=== PATIENT | male | born 1960 | race Caucasian/White ===

== ENCOUNTER 2021-03-18 16:05 | Emergency (ER) | payer OTHER ==
[~2021-03-18] VITALS: Ht 175.3 cm; Wt 100.0 kg
--- NOTE | 2021-03-18 16:41 | NUR ---
dragline operator: Pt to room via WC from lobby at this time.
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
--- NOTE | 2021-03-18 18:31 | NUR ---
BREAK RN- SPLINT PLACED BY NEEDLE PUNCH MACHINE OPERATOR
--- NOTE | 2021-03-18 18:45 | NUR ---
ED RN to ED RN handoff report received from SHAWNA Feliciano
[2021-03-18 18:56] VITALS: BP 158/72
--- NOTE | 2021-03-18 19:07 | NUR ---
REPORT GIVEN TO SHAWNA LY
[2021-03-18] MEDS ORDERED: NEOSPORIN OINT. PKT 1 PACKET ONE (19:16)
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
== END 2021-03-18 20:22 | disposition home or self-care (01) ==
LOC: ED 16:06
DX: S82.65XA Nondisplaced fracture of lateral malleolus of left fibula, initial encounter for closed fracture (principal); V29.9XXA Motorcycle rider (driver) (passenger) injured in unspecified traffic accident, initial encounter; Y93.89 Activity, other specified; Y92.828 Other wilderness area as the place of occurrence of the external cause; Y99.8 Other external cause status
CPT/HCPCS: 29515; 99283